=== PATIENT | female | born 1995 | race Hispanic/Latino ===

== ENCOUNTER 2019-03-21 23:05 | Inpatient (IN) | payer BC, OTHER ==
[~2019-03-21] VITALS: Ht 165.1 cm; Wt 76.0 kg
[2019-03-22] MEDS ORDERED: VITAFOL-OB+DHA1 EACH PO
[2019-03-22] MEDS ORDERED: OMEGA 3 1,0001 EACH PO (00:01)
[2019-03-22] MEDS ORDERED: IRON325 M1 PO (00:01)
--- NOTE | 2019-03-23 08:52 | PR ---
[facility] [address] [place] [address] Signed PP Progress Notes Datetime Report Generated by CPN: 03/23/2019 08:52 SUBJECTIVE: [id number] Pain: Within normal limits Nausea/Vomiting: Denies Vital Signs: [id number] Vital Signs: Reviewed; Within Normal Limits EXAM: [id number] Cardiovascular: Not Done Respiratory: Not Done Abdomen/Uterus: Abnormal Lochia: Normal Vulva/Perineum: Not Done Breasts: Not Done CVA Tenderness: Not Done Extremities: Normal Incision: Not Applicable Progress: Normal Exam Comments: Fundus firm, NT @ U-1. IMPRESSION/PLAN/PROCEDURES: [id number] Impression: Normal progression Plan: Continue present management Progress Notes: Doing well. Will continue present care. Signing Physician: Miriam Nicole MD Copies: ~ *Electronically Signed* 03/23/19 0852 MIRIAM NICOLE MD PATIENT NAME: KYLE PANIAGUA PROGRESS NOTE DATE OF : [birth year] PHYSICIAN: MIRIAM NICOLE MD RPT #: [id number] REPORT IS CONFIDENTIAL AND NOT TO BE RELEASED WITHOUT AUTHORIZATION
--- NOTE | 2019-03-24 07:36 | PR ---
[facility] [address] [facility] [place] [address] Signed PP Progress Notes Datetime Report Generated by CPN: 03/24/2019 07:36 SUBJECTIVE: [id number] Pain: Within normal limits Nausea/Vomiting: Denies Vital Signs: [id number] Vital Signs: Reviewed; Within Normal Limits EXAM: [id number] Cardiovascular: Not Done Respiratory: Not Done Abdomen/Uterus: Abnormal Lochia: Normal Vulva/Perineum: Not Done Breasts: Not Done CVA Tenderness: Not Done Extremities: Normal Incision: Not Applicable Progress: Normal Exam Comments: Fundus firm, NT @ U-2 IMPRESSION/PLAN/PROCEDURES: [id number] Impression: Normal progression Plan: Discharge Procedures: None Progress Notes: Doing well. She is ready for D/C. Signing Physician: Miriam Nicole MD Copies: ~ *Electronically Signed* 03/24/19 0736 MIRIAM NICOLE MD PATIENT NAME: KYLE PANIAGUA PROGRESS NOTE DATE OF : 93 PHYSICIAN: MIRIAM NICOLE MD RPT #: [id number] REPORT IS CONFIDENTIAL AND NOT TO BE RELEASED WITHOUT AUTHORIZATION
== END 2019-03-24 12:35 | disposition home or self-care (01) | DRG 768 ==
LOC: FBCO 23:05 → FBC 23:37
PROVIDERS: ADMIT Obstetrics & Gynecology
PROC: 10E0XZZ Delivery of Products of Conception, External Approach (ICD-10-PCS; principal; 2019-03-22)
PROC: 0UQG0ZZ Repair Vagina, Open Approach (ICD-10-PCS; 2019-03-22)
PROC: 10907ZC Drainage of Amniotic Fluid, Therapeutic from Products of Conception, Via Natural or Artificial Opening (ICD-10-PCS; 2019-03-22)
DX: O99.824 Streptococcus B carrier state complicating childbirth (principal); Z37.0 Single live birth; Z3A.39 39 weeks gestation of pregnancy; O71.4 Obstetric high vaginal laceration alone; O99.02 Anemia complicating childbirth; D50.0 Iron deficiency anemia secondary to blood loss (chronic); Z79.899 Other long term (current) drug therapy
CPT/HCPCS: 36415; 85027; J2540; J2590